=== PATIENT | female | born 1985 | race African-American/Black ===

== ENCOUNTER 2022-05-14 16:40 | Emergency (ER) | payer OTHER ==
[~2022-05-14 16:40] MED LIST: Iopamidol 370 76% 100 ML VIAL ONE
[2022-05-14] MEDS ORDERED: traMADol HCl 50 MG TAB ONE (17:18)
[2022-05-14] MEDS ORDERED: Ketorolac Tromethamine 30 MG/ML VIAL ONE (19:05)
[2022-05-14] MEDS ORDERED: Cyclobenzaprine 10 MG TAB ONE (19:05)
== END 2022-05-14 19:38 | disposition home or self-care (01) ==
LOC: MADERS 16:40
DX: S13.4XXA Sprain of ligaments of cervical spine, initial encounter (principal); S40.819A Abrasion of unspecified upper arm, initial encounter; S80.211A Abrasion, right knee, initial encounter; V43.52XA Car driver injured in collision with other type car in traffic accident, initial encounter; W22.11XA Striking against or struck by driver side automobile airbag, initial encounter; Z86.73 Personal history of transient ischemic attack (TIA), and cerebral infarction without residual deficits; Z79.899 Other long term (current) drug therapy
CPT/HCPCS: 70450; 71260; 72125; 74177; 96374; J1885; Q9967